=== PATIENT | male | born 1930 | race Caucasian/White ===

== ENCOUNTER 2017-07-27 11:52 | Inpatient (IN) | payer OTHER ==
--- NOTE | 2017-07-27 12:10 | CPEKG ---
Heart Rate: 96 RR Interval: 625 P-R Interval: 212 QRSD Interval: 138 QT Interval: 364 QTC Interval: 460 P [place]: 52 QRS [place]: -47 T Wave [place]: -8 EKG Severity - ABNORMAL ECG - EKG Impression: SINUS RHYTHM EKG Impression: RIGHT BUNDLE BRANCH BLOCK Electronically Signed By: Erin Mccurdy 27-Jul-2017 14:11:35
--- NOTE | 2017-07-27 12:17 | EDPHY ---
HPI/HX/ROS/PE/MDM Narrative: CHIEF COMPLAINT: Weakness, confusion HISTORY OF PRESENT ILLNESS: The patient is an 86 y/o male with a history of type 2 diabetes and hypertension complaining of weakness and confusion since last night. Per his , for the last several days the patient has had a decreased appetite. Yesterday, the patient began to urinate more than usual, but there was no blood present or painful urination. While trying to walk to the bathroom, the patient was more weak and his was concerned that he might fall if he did not have assistance. The patient has also had a minor extremity tremor and lower leg pain , but no facial drooping. He is currently denying any pain. No fever, chills, chest pain, shortness of breath, palpitations, vomiting, diarrhea, headache, lightheadedness. REVIEW OF SYSTEMS: Aside from elements discussed in the HPI, a comprehensive 10-point review of systems was reviewed and is negative. Has had a consistent runny nose and sore throat for several years. Also has a mild non-reproductive cough. PAST MEDICAL HISTORY: Type 2 diabetes, hypertension SOCIAL HISTORY: Family bedside, lives in [place] and originally from [place], retired VITAL SIGNS: Reviewed by me GENERAL: Well-developed, well-nourished, resting comfortably in no respiratory distress. HEENT: Atraumatic. Eyes: No icterus, no injection. Mouth: moist mucous membranes. No erythema or lesions. Neck: supple with no adenopathy. LUNGS: Clear to auscultation bilaterally, anteriorly only as he is unable to sit up in bed due to weakness, no wheezes, rhonchi or rales. CARDIAC: Regular rate and rhythm, no rubs, murmurs or gallops. ABDOMEN: Soft, nontender, nondistended, bowel sounds normal. BACK: No CVA tenderness. EXTREMITIES: No trauma. No edema. Range of motion is normal throughout. NEURO: Alert but not oriented to place, grossly nonfocal. SKIN: Warm and dry, no rash. PSYCHIATRIC: Normal mentation, no agitation. Portions of this note were transcribed by a curator medical museum. I personally performed a history, physical exam, medical decision making, and confirmed accuracy of information the transcribed note. ED Course: The patient is an 86 y/o male with a history of type 2 diabetes and hypertension complaining of weakness, increased urination, and confusion since last night. On exam his lungs are clear anteriorly only as he is unable to sit up in bed due to weakness. He is alert but not oriented as he believes it is 1987. Labs, EKG, chest x-ray, and head CT ordered. 1L IV NS given. 1208: 12-LEAD EKG: Please see the full report in [facility]. My interpretation: Normal sinus rhythm with a rate of 96, RBBB. There is a slightly different morphology from EKG in 2014. 1319: Spoke with radiologist, patient has a normal head CT. His chest x-ray reveals mild bronchitis. 1429: Reassessed patient and discussed laboratory and imaging findings. He currently has a mild headache. 1436: Consulted with Dr. Oakley, color control operator physician from patient's PCP's office , regarding this patient. Patient will be admitted for confusion, weakness, and inability to walk. Spoke with hospitalist service, Dr. Malloy accepts admission of this patient. - Data Points Imaging Results: Imaging Impressions Chest X-Ray 07/27/17 12:42 Impression: Mild bronchitis. No other findings for acute cardiopulmonary abnormality. Head CT 07/27/17 12:42 Impression: Moderate periventricular and deep hemispheric white matter change that can be seen with small vessel ischemic disease. No evidence for acute intracranial abnormality. Results called and discussed with Dr. Erin Mccurdy on July 27, 2017 at 1319 hours. Imaging: Discussed imaging studies w/ loan closer Radiologist, I viewed and interpreted images myself Laboratory Results: Laboratory Results 07/27/17 12:28 07/27/17 12:28 07/27/17 07/27/17 07/27/17 14:11 12:28 12:28 WBC 8.03 10^3/uL 10^3/uL (3.80-9.50) RBC 4.94 10^6/uL 10^6/uL (4.40-6.38) Hgb 16.0 g/dL g/dL (13.7-17.5) Hct 46.3 % % (40.0-51.0) MCV 93.7 fL fL (81.5-99.8) MCH 32.4 pg pg (27.9-34.1) MCHC 34.6 g/dL g/dL (32.4-36.7) RDW 14.0 % % (11.5-15.2) Plt Count 168 10^3/uL 10^3/uL (150-400) MPV 9.7 fL fL (8.7-11.7) Neut % (Auto) 79.3 % H % (39.3-74.2) Lymph % (Auto) 6.7 % L % (15.0-45.0) C[place] % (Auto) 13.4 % H % (4.5-13.0) Eos % (Auto) 0.0 % L % (0.6-7.6) Baso % (Auto) 0.1 % L % (0.3-1.7) Nucleat RBC Rel Count 0.0 % % (0.0-0.2) Absolute Neuts (auto) 6.36 10^3/uL 10^3/uL (1.70-6.50) Absolute Lymphs (auto) 0.54 10^3/uL L 10^3/uL (1.00-3.00) Absolute Monos (auto) 1.08 10^3/uL H 10^3/uL (0.30-0.80) Absolute Eos (auto) 0.00 10^3/uL L 10^3/uL (0.03-0.40) Absolute Basos (auto) 0.01 10^3/uL L 10^3/uL (0.02-0.10) Absolute Nucleated RBC 0.00 10^3/uL 10^3/uL (0-0.01) Immature Gran % 0.5 % % (0.0-1.1) Immature Gran # 0.04 10^3/uL 10^3/uL (0.00-0.10) Sodium 137 mEq/L mEq/L (135-145) Potassium 4.7 mEq/L mEq/L (3.5-5.2) Chloride 99 mEq/L mEq/L (97-110) Carbon Dioxide 21 mEq/l L mEq/l (22-31) Anion Gap 17 mEq/L H mEq/L (8-16) BUN 30 mg/dL H mg/dL (7-23) Creatinine 1.2 mg/dL mg/dL (0.7-1.3) Estimated GFR 58 Glucose 194 mg/dL H mg/dL (70-100) Calcium 10.2 mg/dL mg/dL (8.5-10.4) Total Bilirubin Conjugated Bilirubin Unconjugated Bilirubin AST ALT Alkaline Phosphatase Troponin I < 0.012 ng/mL ng/mL (0.000-0.034) Total Protein Albumin Urine Color YELLOW Urine Appearance CLEAR Urine pH 5.0 (5.0-7.5) Ur Specific [place] 1.021 (1.002-1.030) Urine Protein 2+ H (NEGATIVE) Urine Ketones NEGATIVE (NEGATIVE) Urine Blood 1+ H (NEGATIVE) Urine Nitrate NEGATIVE (NEGATIVE) Urine Bilirubin NEGATIVE (NEGATIVE) Urine Urobilinogen NEGATIVE EU EU (0.2-1.0) Ur Leukocyte Esterase NEGATIVE (NEGATIVE) Urine RBC NONE SEEN /hpf /hpf (0-3) Urine WBC 1-3 /hpf /hpf (0-3) Ur Epithelial Cells TRACE /lpf /lpf (NONE-1+) Urine Mucus TRACE /lpf /lpf (NONE-1+) Urine Glucose 2+ H (NEGATIVE) 07/27/17 12:00 WBC RBC Hgb Hct MCV MCH MCHC RDW Plt Count MPV Neut % (Auto) Lymph % (Auto) [place] % (Auto) Eos % (Auto) Baso % (Auto) Nucleat RBC Rel Count Absolute Neuts (auto) Absolute Lymphs (auto) Absolute Monos (auto) Absolute Eos (auto) Absolute Basos (auto) Absolute Nucleated RBC Immature Gran % Immature Gran # Sodium Potassium Chloride Carbon Dioxide Anion Gap BUN Creatinine Estimated GFR Glucose Calcium Total Bilirubin 0.9 mg/dL mg/dL (0.1-1.4) Conjugated Bilirubin 0.4 mg/dL mg/dL (0.0-0.5) Unconjugated Bilirubin 0.5 mg/dL mg/dL (0.0-1.1) AST 25 IU/L IU/L (17-59) ALT 39 IU/L IU/L (21-72) Alkaline Phosphatase 78 IU/L IU/L (38-126) Troponin I Total Protein 7.5 g/dL g/dL (6.3-8.2) Albumin 4.3 g/dL g/dL (3.5-5.0) Urine Color Urine Appearance Urine pH Ur Specific [place] Urine Protein Urine Ketones Urine Blood Urine Nitrate Urine Bilirubin Urine Urobilinogen Ur Leukocyte Esterase Urine RBC Urine WBC Ur Epithelial Cells Urine Mucus Urine Glucose Medications Given: Discontinued Medications Sodium Chloride (Ns) 1,000 mls @ 0 mls/hr IV ONCE ONE; Wide Open PRN Reason: Protocol Stop: 07/27/17 12:42 Last Admin: 07/27/17 13:11 Dose: 1,000 mls General Time Seen by Provider: 07/27/17 12:15 Initial Vital Signs: Initial Vital Signs Temperature (C) 37.5 C 07/27/17 11:57 Heart Rate 97 07/27/17 11:57 Respiratory Rate 18 07/27/17 11:57 Blood Pressure 150/95 H 07/27/17 11:57 O2 Sat (%) 92 07/27/17 11:57 O2 Delivery Mode Room Air Allergies/Adverse Reactions: No Known Allergies Allergy (Unverified 11/26/13 08:49) Home Medications: Medication Instructions Recorded ASPIRIN 11/26/13 Lipitor 20 mg (RX) 11/26/13 Metformin HCl ER 11/26/13 Norvasc 11/26/13 Departure - Departure Disposition: [facility] Inpatient Acute Clinical Impression: Bronchitis, Weakness, Confusion, Inability to walk Condition: Fair Referrals: Willy Quispe MD [Primary Care Provider] - As per Instructions Report Scribed for: Erin Mccurdy Report Scribed by: [place]ette [place] Date of Report: 07/27/17 Time of Report: 12:17
[2017-07-27 12:34] LABS: PLATELET COUNT 168 10^3/uL (150-400)
[2017-07-27] MEDS ORDERED: NS 1,000 ML IV ONE (12:41)
[2017-07-27] MEDS ORDERED: ACETAMINOPHEN 325 MG TAB PO PRN (17:00)
[2017-07-27] MEDS ORDERED: NS 1,000 ML IV SCH (17:00)
[2017-07-27] MEDS ORDERED: IBUPROFEN 200 MG TAB PO PRN (17:00)
[2017-07-27] MEDS ORDERED: ONDANSETRON 4 MG/2 ML VIAL IVP PRN (17:00)
[2017-07-27] MEDS ORDERED: diphenhydrAMINE 25 MG CAP PO PRN (17:00)
[2017-07-27] MEDS ORDERED: ONDANSETRON DISINTEGRATING 4 MG TAB PO PRN (17:00)
--- NOTE | 2017-07-27 17:54 | GHP ---
[f rep st] HISTORY AND PHYSICAL DATE OF ADMISSION: 07/27/2017 Observation Admission. REASON FOR ADMISSION: Fatigue progressing over 3 or 4 days, inability to walk, confusion, and new fi nding of left leg rash. HISTORY OF PRESENT ILLNESS: Mr. James has been less than his normal self for the past 4 or 5 days. He has been more tired, less hungry. He has gotten progressively weaker. His was having diff iculty walking him over the past 24 hours. She has noticed a rash on his left leg and was putting on a topical Salonpas patch to see if he could have some relief. It was more red. She states it is no w a darker shade where the acute inflammation-type picture is less of an issue. He has not had fever or chills. He did receive fluid in the ER and feels a little bit more alert. He does have a headac he. No acute visual changes. He denies clear sinus congestion or stuffiness. No change in hearing or sense of ear pain or pressure. No sore throat. No lymph node enlargement. He has chronic shortn ess of breath with a chronic cough; no acute changes. He denies chest pain or palpitations. His tani etite has been diminished. No nausea or vomiting. No change in bowel pattern. No gut pain. No ole n with urination; he has been urinating a bit more frequently. He has had low back pain and left leg pain correlating with his rash. His legs have been weak by difficulty with ambulation, but he has n ot noticed any new numbness, weakness, or tingling. He describes the rash as a 9/10 on 10-point scal e for pain. ALLERGIES: No known drug allergies. He is a declared [id number]. HOME MEDICATIONS: Include levothyroxine 75 mg daily, Atorvastatin 20 mg daily, aspirin 81 mg daily, fish oil 1000 mg daily, metformin 500 mg daily. FAMILY HISTORY: Noncontributory. SOCIAL HISTORY: Lives with . Son and [id number] are nearby. He drinks a minimum amount of alcohol. He does not smoke. 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 SURGICAL HISTORY: Nothing recent. REVIEW OF SYSTEMS: GENERAL: No fever, chills, or aches. There has been some sense of tremor noted by the family. HEENT: As per HPI. MUSCULOSKELETAL: No acute complaints aside from low back pain a nd left leg pain. PHYSICAL EXAMINATION: VITAL SIGNS: Blood pressure maximally 182/97, heart rate in the 90s, respirat ory rate 16, saturation 92% to 93% in room air, temperature maximally 37.5. GENERAL: Pleasant, some what more distant than usual, elderly [place] male. He responds to questions appropriately. There i s some occasional need for translation, but he does a good job of providing a history. Pupils are sy mmetric. No photophobia. Skull without evidence of trauma. Oropharynx is benign. NECK: Without m asses. No jugular venous pressure elevation. No lymphadenopathy. LUNGS: Diminished breath sounds. Dry cough. HEART: Regular rate and rhythm without murmur. ABDOMEN: Central adiposity. Positive bowel sounds. Soft, nontender, nondistended. : No gross external abnormalities. EXTREMITIES: Upper extremities without abnormalities. Upper extremity skin with chronic changes from prior work e xposures. Lower extremities: Venous stasis edema changes, which are mild. Some evidence of chronic venous stasis dermatitis. No significant lower extremity edema. On the posterior left leg, there i s a dermatomal rash emanating from the L5 region down through the left buttock down the posterior por tion of the left leg to the mid calf region. There are vesicles in various stages of healing. No ac tyler vesicles are appreciated at this moment. DATABASE: EKG: Sinus rhythm with profound right bundle branch block. Chest x-ray: Elevated right hemidiaphragm, chronic bronchitis-type picture. CT head: Mild atrophy; no acute changes. Laboratory: White count 8.03, hemoglobin 16, platelets 168. There is a left shift. Metabolic panel : BUN is at 30, sugar 194, calcium 10.2. Liver functions are normal. Troponin is negative. TSH is pending. Urinalysis positive for glucose and protein;otherwise clear. ASSESSMENT: 1. Probable dehydration: Fatigue, lethargy, some confusion, likely emanating from fairly vivid left lower extremity shingles exanthem. Given somewhat of a global decline, I will initiate Valtrex 1000 mg q.8 hours x7 days. Begin gabapentin cautiously at 100 mg t.i.d.; will escalate dose based on how well he tolerates this medication versus relief of neuropathic pain. 2. Hypertension: Moderate hypertensive urgency with headache. I will begin 5 mg of amlodipine rafia y. 3. Diabetes: Clinically stable. 4. Hyperlipidemia: Stable with Lipitor. 5. Atherosclerosis: No evidence of active cardiac symptomatology. Will continue aspirin and observ e. He has good family support in the area. Will hydrate him. Will encourage him to eat. Will see how he improves with strength and mobility. If doing well, anticipate discharge home tomorrow. /[id number]/MODL
[2017-07-27] MEDS: ASPIRIN EC 81 MG TAB PO SCH (18:38)
[2017-07-27] MEDS: ATORVASTATIN CALCIUM 20 MG TAB PO SCH (18:38)
[2017-07-27] MEDS: amLODIPine BESYLATE 5 MG TAB PO SCH (18:38)
[2017-07-27] MEDS: LEVOTHYROXINE 75 MCG TAB PO SCH (18:38)
[2017-07-27] MEDS: GABAPENTIN 100 MG CAP PO SCH (22:04)
[2017-07-27] MEDS: valACYclovir 500 MG TAB PO SCH (22:05)
[2017-07-28] MEDS: valACYclovir 500 MG TAB PO SCH ×3 (05:45→22:57)
[2017-07-28] MEDS: OMEGA-3 FATTY ACIDS 1,000 MG CAP PO SCH (08:26)
[2017-07-28] MEDS: LEVOTHYROXINE 75 MCG TAB PO SCH (08:26)
[2017-07-28] MEDS: ASPIRIN EC 81 MG TAB PO SCH (08:26)
[2017-07-28] MEDS: amLODIPine BESYLATE 5 MG TAB PO SCH (08:26)
[2017-07-28] MEDS: ATORVASTATIN CALCIUM 20 MG TAB PO SCH (08:26)
[2017-07-28] MEDS: GABAPENTIN 100 MG CAP PO SCH ×3 (08:26→22:57)
[2017-07-28] MEDS: ENOXAPARIN 40 MG/0.4 ML SYR SC SCH (08:27)
[2017-07-28] MEDS ORDERED: ENOXAPARIN 30 MG/0.3 ML SYR SC SCH (09:00)
--- NOTE | 2017-07-28 09:30 | ASMTCMCOM ---
CM Note CM Note Notes: Patient admitted via ED for progressive weakness, confusion. Normally lives in [place] with his . Recent shingles. No therapies orders, CM to follow. Plan: LIkely home without needs Date Signed: 07/28/2017 09:29 AM Electronically Signed By:Nancy Callahan RN
--- NOTE | 2017-07-28 10:19 | SOAPPROG ---
SOAP Progress Note Assessment/Plan: Assessment: Plan: 07/28/17 10:17 dehydration and weakness from HZV. He looks better this am. Will continue on po meds with valtex and gabapentin. Rx's called to [facility]. Will increase gabapentin to 200 mg TID Anticipate d/c to home if he does ok with PT Subjective: He is feeling somewhat better. He has eaten breakfast nicely. He states his legs are weak. He has ambulated today. Objective: Vital Signs Temp Pulse Resp BP Pulse Ox 36.9 C 82 18 121/76 H 94 07/28/17 08:00 07/28/17 08:00 07/28/17 08:00 07/28/17 08:26 07/28/17 08:00 Microbiology 07/27/17 15:00 Respiratory Panel (PCR) - Final Nasal, Sinus - Swab No Organism Detected 07/27/17 07/28/17 07/29/17 05:59 05:59 05:59 Intake Total 1000 Output Total 150 Balance 1000 -150 Gen: NAD, brighter Lungs: mild coarseness with cough Heart: RRR Abd + bs soft LLE: shinges exanthem BP improved temp last night, none since ICD10 Worksheet Patient Problems: Problems Problem Status Onset Bronchitis Acute Confusion Acute Inability to walk Acute Weakness Acute
--- NOTE | 2017-07-28 13:36 | SOAPPROG ---
SOAP Progress Note Assessment/Plan: Assessment: Plan: 07/28/17 10:17 dehydration and weakness from HZV. He looks better this am. Will continue on po meds with valtex and gabapentin. Rx's called to [facility]. Will increase gabapentin to 200 mg TID Anticipate d/c to home if he does ok with PT 07/28/17 13:35 patient seen by PT. deemed unsafe to go home given weakness and instability. will keep overnight tonight. reassess in am. admission order changed to admit. Objective: Vital Signs Temp Pulse Resp BP Pulse Ox 36.6 C 92 16 130/71 H 90 L 07/28/17 11:35 07/28/17 11:35 07/28/17 11:35 07/28/17 11:35 07/28/17 11:35 Microbiology 07/27/17 15:00 Respiratory Panel (PCR) - Final Nasal, Sinus - Swab No Organism Detected 07/27/17 07/28/17 07/29/17 05:59 05:59 05:59 Intake Total 1000 Output Total 150 Balance 1000 -150 ICD10 Worksheet Patient Problems: Problems Problem Status Onset Bronchitis Acute Confusion Acute Inability to walk Acute Weakness Acute
[2017-07-28] MEDS ORDERED: NS 1,000 ML IV SCH (13:45)
--- NOTE | 2017-07-28 14:14 | PDMN ---
Medical Necessity Medical necessity: C/M review: Patient meets INPT criteria under [facility] M-123 Dehydration, Neurology GRG (Generalized muscle weakness): Acute and persistent dehydration, generalized weakness, gait instability, patient failed PT eval patient medically unsafe to do home, left lower extremity shingles exanthema, 89% RA sat, requiring IV fluids, planned Wound care consult , ongoing oral Valtrex Q 8 hrs., pulse oximetry, supplemental O2, acute inpt PT /OT, comorbid hypertension, diabetes, hyperlipidemia, atherosclerosis. PA anticipates > 2 MN LOS for ongoing med necessity for eval and TX of above. Patient is Medicare Advantage which follows guidelines CMS puts forth.
[2017-07-29] MEDS: valACYclovir 500 MG TAB PO SCH ×2 (05:58→14:15)
[2017-07-29] MEDS: amLODIPine BESYLATE 5 MG TAB PO SCH (08:50)
[2017-07-29] MEDS: OMEGA-3 FATTY ACIDS 1,000 MG CAP PO SCH (08:50)
[2017-07-29] MEDS: GABAPENTIN 100 MG CAP PO SCH (08:50)
[2017-07-29] MEDS: ASPIRIN EC 81 MG TAB PO SCH (08:50)
[2017-07-29] MEDS: LEVOTHYROXINE 75 MCG TAB PO SCH (08:50)
[2017-07-29] MEDS: ATORVASTATIN CALCIUM 20 MG TAB PO SCH (08:50)
[2017-07-29] MEDS: ENOXAPARIN 40 MG/0.4 ML SYR SC SCH ×2 (08:51→09:10)
[2017-07-29] MEDS ORDERED: GABAPENTIN 100 MG CAP PO SCH (09:12)
--- NOTE | 2017-07-29 09:15 | SOAPPROG ---
SOAP Progress Note Assessment/Plan: Assessment: Plan: 07/28/17 10:17 dehydration and weakness from HZV. He looks better this am. Will continue on po meds with valtex and gabapentin. Rx's called to [facility]. Will increase gabapentin to 200 mg TID Anticipate d/c to home if he does ok with PT 07/28/17 13:35 patient seen by PT. deemed unsafe to go home given weakness and instability. will keep overnight tonight. reassess in am. admission order changed to admit. 07/29/17 09:14 HZV exanthem--pain improved. Patient wants less medicine. Gabapentin working. We discussed neuropathic pain to the level of what his [place] would understand. Will reduce gabapentin to 100 mg TID. He would like to go home, but does not want [facility]. HTN improved chronic lung disease--stable dehydration--resolved Subjective: Erin has less pain. He was lots of perspective on shingles and medication and therapy. He would like to go home, but does not want PT/OT. Eating and drinking well. Frustrated with frequent urination. Objective: Vital Signs Temp Pulse Resp BP Pulse Ox 36.9 C 82 20 163/78 H 94 07/29/17 07:51 07/29/17 07:51 07/29/17 07:51 07/29/17 08:50 07/29/17 07:51 07/28/17 07/29/17 07/30/17 05:59 05:59 05:59 Intake Total 1000 1724 300 Output Total 1100 450 Balance 1000 624 -150 Gen: NAD, bright Lungs: diminished breath sounds, stable intermittent congestion Heart: RRR Abd: + bs soft LLE rash--improving as expected. ICD10 Worksheet Patient Problems: Problems Problem Status Onset Bronchitis Acute Confusion Acute Inability to walk Acute Weakness Acute
--- NOTE | 2017-07-29 10:10 | PDIAF ---
- Diagnosis Diagnosis: leg weakness, LLE shingles Code Status: Do Not Resuscitate - Medication Management Discharge Medications: Medications to Continue on Transfer Aspirin EC [Aspirin EC 81 mg (*)] 81 mg PO DAILY 07/27/17 [Last Taken 07/26/17] Atorvastatin Calcium [Lipitor 20 mg (*)] 20 mg PO DAILY 07/27/17 [Last Taken ] Levothyroxine Sodium 75 mcg PO DAILY 07/27/17 [Last Taken 07/26/17] [place]-3 Fatty Acids [Fish Oil 1000 mg (*)] 1,000 mg PO DAILY 07/27/17 [Last Taken 07/26/17] metFORMIN HCL [Metformin HCl] 500 mg PO DAILY 07/27/17 [Last Taken 07/26/17] Acetaminophen [Tylenol 325mg (*)] 650 mg PO Q4HRS PRN tab 07/29/17 [Last Taken Unknown] Gabapentin [Neurontin 100 MG (*)] 100 mg PO TID cap 07/29/17 [Last Taken Unknown] Ibuprofen [Motrin (*)] 400 mg PO Q4HRS PRN tab 07/29/17 [Last Taken Unknown] valACYclovir [Valtrex (*)] 1,000 mg PO Q8 tab 07/29/17 [Last Taken Unknown] Alarm Signal Operator Antibiotics: n/a Discharge Medications: Refer to the Discharge Home Medication list for PRN reason. PICC Care - Routine: N/A - Orders Services needed: Registered Nurse, Physical Therapy, Occupational Therapy Isolation Type: None Diet Recommendation: no restrictions on diet Diet Texture: Regular Texture Diet Fink: No - Follow Up Care Current Providers and Referrals: Willy Quispe MD [Primary Care Provider] - As per Instructions
--- NOTE | 2017-07-29 10:20 | ASMTCMCOM ---
CM Note CM Note Notes: CM spoke w/ LUCIAN Taylor regarding d/c POC. DC orders have been put in. CM met w/ pt and for dispo planning. Both would like to have a referral made to [facility] . Referral sent to [facility] and they are able to accept and take pts insurance. CM provided pt and w/ phone number to [facility]. CM confirmed pts address and phone number. PT worked w/ pt today and is recommending SNF. Pts is refusing SNF. CM communicated d/c plan to GLYNN Hernandez. CM to follow. Plan: [facility] , PT, OT, RN Date Signed: 07/29/2017 10:19 AM Electronically Signed By:RONAK Lobato
--- NOTE | 2017-07-29 10:26 | GDS ---
[f rep st] DISCHARGE SUMMARY REASON FOR ADMISSION: 1. Dehydration, weakness, global decline. 2. Significant HZV exanthem, left lower extremity. 3. Hypertension with some urgency. 4. Chronic lung disease, stable. HOSPITAL COURSE: Patient was admitted after declining over the 4-5 days prior to admission. He was not interested in eating. He was not drinking much. His weakness was increasing. He became unstabl e on his feet. For this reason, he was brought to the ER. Initial ER workup was fairly negative for acute findings. In evaluating the patient, a large shingles exanthem was noted from the sacral krysten on through the left calf region. There were vesicles in various stages of healing. He admitted to type left lower extremity pain. This improved with oral gabapentin. He is tolerating Valtrex we ll. He has been working with PT, who has found him somewhat weak and unsteady. We discussed this. He feels some of this is mostly God's will. He does not want to go home with PT and OT. He would li ke to minimize his gabapentin as much as possible. We discussed the potential for long-term neuropat hic pain, but he is not of the mind set to really want to take medications longer than is absolutely necessary. He will continue on Valtrex 1000 mg t.i.d. to complete a 7-day course. We will reduce ga bapentin to 100 mg t.i.d. We will discharge the patient home without home health care, per his wishe s. We will have outpatient followup in the next several days. We will follow blood pressure as an o utpatient. We will follow borderline hypoxia as an outpatient as well. /[id number]/MODL
--- NOTE | 2017-07-29 10:35 | ASMTLACE ---
LACE Length of stay for Answers: 2 days current admission Acuity / Level of Answers: Yes Care: Did the patient have an inpatient admission? Comorbidities - select Answers: Coronary Artery Disease all that apply # of Emergency department Answers: 1-2 visits in the last 6 months Score: 8 Date Signed: 07/29/2017 10:34 AM Electronically Signed By:RONAK Lobato
[2017-07-29 11:12] VITALS: BP 120/65
--- NOTE | 2017-07-29 15:34 | ASDISCHSUM ---
Discharge Information Plan Status:Home with Home Health Medically Cleared to Leave:07/29/2017 Discharge Date:07/29/2017 02:42 PM D/C Disposition: ADT D/C Disposition:Home, Routine, Self-Care Projected Discharge Date:07/29/2017 11:00 AM Transportation at D/C: Discharge Delay Reason: Follow-Up Date:07/29/2017 11:00 AM Discharge Slot: Final Diagnosis: Placement Information Referral Type:*Home Health Care Services Referral ID:[id number] Provider Name:[facility] Address 1:[address] [facility] [address] Address 2: City:[place] Selection Factors: State:[place] Patient Contact Information Contact Name:GLENN Relationship: Address:[address] Work Phone: [facility]:[place] Alternate Phone: [facility]/Zip Code:[place] [address] Email: Financial Information Financial Class:Medicare Advantage Plans Primary Plan Desc:[employer] ADVANTAGE PLANS Primary Plan Number:[id number] Secondary Plan Desc: Secondary Plan Number: Assessment Information LACE LACE Length of stay for Answers: 2 days current admission Acuity / Level of Answers: Yes Care: Did the patient have an inpatient admission? Comorbidities - select Answers: Coronary Artery Disease all that apply # of Emergency department Answers: 1-2 visits in the last 6 months Score: 8 Date Signed: 07/29/2017 10:34 AM Electronically Signed By:RONAK Lobato [facility] CM Progress Note CM Note CM Note Notes: Patient admitted via ED for progressive weakness, confusion. Normally lives in [place] with his . Recent shingles. No therapies orders, CM to follow. Plan: LIkely home without needs Date Signed: 07/28/2017 09:29 AM Electronically Signed By:Nancy Callahan RN [facility] Progress Note CM Note CM Note Notes: CM spoke w/ LUCIAN Taylor regarding d/c POC. DC orders have been put in. CM met w/ pt and for dispo planning. Both would like to have a referral made to [facility]. Referral sent to [facility] and they are able to accept and take pts insurance. CM provided pt and w/ phone number to [facility]. CM confirmed pts address and phone number. PT worked w/ pt today and is recommending SNF. Pts is refusing SNF. CM communicated d/c plan to GLYNN Hernandez. CM to follow. Plan: [facility] MICHELLE, PT, KELLEY, RN Date Signed: 07/29/2017 10:19 AM Electronically Signed By:RONAK Lobato Intervention Information
== END 2017-07-29 14:42 | disposition home or self-care (01) | DRG 866 ==
LOC: OBSVTOIN 14:39 → F3E 16:14
PROVIDERS: ADMIT Internal Medicine; ATTEND Internal Medicine
DX: B08.8 Other specified viral infections characterized by skin and mucous membrane lesions (principal); B02.8 Zoster with other complications; E86.0 Dehydration; I16.0 Hypertensive urgency; E11.9 Type 2 diabetes mellitus without complications; J98.4 Other disorders of lung; E78.5 Hyperlipidemia, unspecified; Z66 Do not resuscitate
CPT/HCPCS: 97116-GP; 97161-GP; 97166-GO; 97530-GO; 97535-GO; G0378; G8978-GP-CK; G8979-GP-CJ; G8987-GO-CK; G8988-GO-CI; J1650

== ENCOUNTER → 2018-08-15 | Outpatient (CLI) | payer OTHER ==
[~2018-08-15] MED LIST: IOPAMIDOL (ISOVUE-370) 150 ML BTL IV ONE
== END ==
LOC: CIMAGING 13:40
PROVIDERS: ATTEND Surgery
DX: E11.621 Type 2 diabetes mellitus with foot ulcer (principal); I77.1 Stricture of artery
CPT/HCPCS: 75635; Q9967; 82565-PO